=== PATIENT | male | born 1940 | race African-American/Black ===

== ENCOUNTER 2017-09-07 08:49 | Emergency (ER) | payer MEDICARE | END 2017-09-07 09:20 | disposition home or self-care (01) | LOC: D.ER 08:49 | DX: K40.90 Unilateral inguinal hernia, without obstruction or gangrene, not specified as recurrent (principal); M54.10 Radiculopathy, site unspecified; K21.9 Gastro-esophageal reflux disease without esophagitis; F17.200 Nicotine dependence, unspecified, uncomplicated ==